=== PATIENT | female | born 1985 | race Caucasian/White ===

== ENCOUNTER 2018-01-20 20:05 | Observation (INO) | payer OTHER ==
[~2018-01-20] VITALS: Ht 162.6 cm; Wt 65.8 kg
[2018-01-20 21:37] LABS: ABSOLUTE BASOPHIL COUNT 0.1 /CUMM (0.0-0.2); ABSOLUTE EOSINOPHIL COUNT 0.1 /CUMM (0.0-0.7); ABSOLUTE GRANULOCYTE CT 5.4 /CUMM (1.4-6.5); ABSOLUTE LYMPH COUNT 1.5 /CUMM (1.2-3.4); ABSOLUTE MONOCYTE COUNT 0.4 /CUMM (0.10-0.60); BASOPHIL % 0.7 % (0.0-2.0); EOSINOPHIL % 1.1 % (0-5); GRANULOCYTE % 72.7 % (42.2-75.2); HEMATOCRIT 38.9 % (37-47); MEAN CORPUSCULAR HGB 31.4 PG (27.0-31.0); MEAN CORPUSCULAR HGB CONC 34.2 G/DL (33.0-37.0); MEAN CORPUSCULAR VOLUME 91.8 FL (81.0-99.0); MEAN PLATELET VOLUME 9.9 FL (7.4-10.4); PLATELET COUNT 211 /CUMM (130-400); RBC DISTRIBUTION WIDTH 12.1 % (11.5-14.5); RED BLOOD CELL CT 4.24 /CUMM (4.20-5.40); WHITE BLOOD CELL COUNT 7.4 /CUMM (4.8-10.8)
--- NOTE | 2018-01-20 22:20 | ED GI/GU/ABDOMINAL COMPLAINT ---
See Addendum History of Present Illness General Chief Complaint: Abdominal Pain/Flank Pain Stated Complaint: "RT SIDE ABD PAIN RADIATES TO JHONY,+N+V-D" Source: patient Exam Limitations: no limitations Vital Signs & Intake/Output Vital Signs & Intake/Output Vital Signs Date Time Temp Pulse Resp B/P B/P Pulse O2 O2 Flow FiO2 Mean Ox Delivery Rate 01/21 0238 98.9 75 20 110/74 98 01/21 0132 97.9 73 18 112/78 98 Room Air 01/20 2335 98.1 78 18 110/75 97 Room Air 01/20 2151 72 18 114/60 100 Room Air 01/20 2149 Room Air 01/20 2042 98.4 83 18 124/81 99 Room Air ED Intake and Output 01/21 0000 01/20 1200 Intake Total Output Total Balance Patient 145 lb Weight Weight Reported by Patient Measurement Method Allergies Coded Allergies: naproxen (From ALEVE) (HIVES 01/20/18) Reconcile Medications No Known Home Medications Triage Note: PT TO ED C/O RT SIDE ABD PAIN THAT WRAPS TO BACK, CONSTANT TODAY WITH +N/V. STARTED AFTER EATING A BURGER FOR LUNCH. DENIES UTI S/S. LAST MENSES 01/13/18. LAST BM WAS THIS AM AND WAS NORMAL Triage Nurses Notes Reviewed? yes LMP (ages 10-50): unknown ? n Is pt currently ? No Onset: Abrupt Duration: day(s): (1), constant, continues in ED, getting worse Timing: single episode today Quality/Severity: cramping Severity Numbers: 9 Location: right upper quadrant Radiation: back Activities at Onset: eating Prior Abdominal Problems: none Past Sexual History: Unobtainable at this time No Modifying Factors: none Modifying Factors: Worsens With: movement, palpation. Associated Symptoms: abdominal pain, nausea/vomiting HPI: 32-year-old female with past medical history of chronic neck pain visits for evaluation of right upper quadrant pain. Patient states symptoms began around lunchtime after she ate a hamburger. The pain is located in the right upper quadrant and radiates into the right flank and back. Described as cramping. It is been constant since lunchtime. Associated with nausea and vomiting. No diarrhea or fever. She reports she has had similar symptoms in the past and she has multiple family members that have had gallbladder problems. No chest pain shortness of breath no urinary symptoms. She has not eaten since the pain started. No other abdominal surgeries. (Stas Velez) Past History Travel History Traveled to [place] past 21 day No Medical History Any Pertinent Medical History? see below for history Neurological: NONE EENT: NONE Cardiovascular: NONE Respiratory: NONE Gastrointestinal: NONE Hepatic: NONE Renal: NONE Musculoskeletal: CHRONIC NECK PAIN Psychiatric: NONE Endocrine: NONE Surgical History Surgical History: none Psychosocial History What is your primary language Croatian Tobacco Use: Never used ETOH Use: occasional use Illicit Drug Use: denies illicit drug use Family History Hx Contributory? No (Stas Velez) Review of Systems Review of Systems Constitutional: Reports: no symptoms. EENTM: Reports: no symptoms. Respiratory: Reports: no symptoms. Cardiovascular: Reports: no symptoms. GI: Reports: see HPI, abdominal pain, nausea, vomiting. Genitourinary: Reports: no symptoms. Musculoskeletal: Reports: no symptoms. Skin: Reports: no symptoms. Neurological/Psychological: Reports: no symptoms. Hematologic/Endocrine: Reports: no symptoms. Immunologic/Allergic: Reports: no symptoms. All Other Systems: Reviewed and Negative (Stas Velez) Physical Exam Physical Exam General Appearance: well developed/nourished, no apparent distress, alert, awake Head: atraumatic, normal appearance Eyes: Bilateral: normal appearance, PERRL, EOMI. Ears, Nose, Throat, Mouth: moist mucous membrane Neck: normal inspection, supple, full range of motion Respiratory: normal breath sounds, chest non-tender, no respiratory distress, lungs clear Cardiovascular: regular rate/rhythm, normal peripheral pulses Peripheral Pulses: 2+ radial (R), 2+ radial (L) Gastrointestinal: normal bowel sounds, soft, no organomegaly, tenderness (ruq) Back: normal inspection, normal range of motion, no vertebral tenderness Extremities: normal range of motion Neurologic/Psych: no motor/sensory deficits, awake, alert, oriented x 3, normal gait Skin: intact, normal color, warm/dry Core Measures ACS in differential dx? No Sepsis Present: No Sepsis Focused Exam Completed? No (Stas Velez) Progress Differential Diagnosis: appendicitis, biliary colic, bowel obstruction, cholecystitis, diverticulitis, ectopic , gastritis, hepatitis, hernia, inflamm bowel dis, intrauterine , kidney stone, ovarian cyst, ovarian torsion, pancreatitis, PID/cervicitis, peptic ulcer, PUD/GERD, SBO, threatened AB, UTI/pyelo Plan of Care: Orders Procedure Date/time Status Nothing by Mouth 01/21 B Active Vital Signs 01/21 149 Active Teach/Educate 01/21 149 Active Pain Treatment and Response 01/21 149 Active Nutritional Intake, Monitor 01/21 149 Active Isolation 01/21 149 Active Intake & Output 01/21 149 Active Patient Care Conference 01/21 149 Active Activity/Ambulation 01/21 149 Active Pathway - chart 01/22 108 Active Patient Data 01/22 104 Active Code Status 01/22 104 Active Add-on Test (ER Only) 01/21 37 Active TYPE & SCREEN (NOT X-MATCH) 01/[address] in observation 01/21 UNK Active VTE Mechanical Prophylaxis 01/21 UNK Active Vital Signs 01/21 UNK Active Intake & Output 01/21 UNK Active Activity/Ambulation 01/21 UNK Active PARTIAL THROMBOPLASTIN TIME 01/20 2129 Complete PROTHROMBIN TIME 01/20 2129 Complete TROPONIN LEVEL 01/20 2058 Complete LIPASE 01/20 2058 Complete COMPREHENSIVE METABOLIC PANEL 01/20 2058 Complete CBC WITHOUT DIFFERENTIAL 01/20 2058 Complete URINE 01/21 2056 Complete URINALYSIS 01/21 2056 Complete Current Medications Sig/Buck Start time Last Medication Dose Stop Time Status Admin Morphine Sulfate 2 MG Q2 HRS NEEDED PRN 01/21 145 AC (MORPHINE SULFATE) Morphine Sulfate 4 MG Q2 HRS NEEDED PRN 01/21 145 AC 01/21 (MORPHINE SULFATE) 0333 Acetaminophen 650 MG Q6PRN PRN 01/21 115 AC (Tylenol) Ampicillin Sodium/ 1,500 MG Q6 01/21 115 AC 01/21 Sulbactam Sodium 0143 (Unasyn) Sodium Chloride 100 ML (Normal Saline 0.9%) Dextrose/Sodium 1,000 ML .Q8H 01/21 115 AC 01/21 Chloride 0240 (D5-Normal Saline) Ondansetron HCl 4 MG Q6-PRN PRN 01/21 115 AC 01/21 (Zofran) 0302 Laboratory Tests 01/20/182128: Anion Gap 12, Estimated GFR > 60, BUN/Creatinine Ratio 20.0, Glucose 89, Calcium 9.8, Total Bilirubin 0.6, AST 35, ALT 44, Alkaline Phosphatase 52, Troponin I < 0.01, Total Protein 7.1, Albumin 4.2, Globulin 2.9, Albumin/Globulin Ratio 1.4, Lipase 127, PT 12.2, INR 1.12, APTT 33, CBC w Diff NO MAN DIFF REQ, RBC 4.24, MCV 91.8, MCH 31.4 H, MCHC 34.2, RDW 12.1, MPV 9.9, Gran % 72.7, Lymphocytes % 19.9 L, Monocytes % 5.6, Eosinophils % 1.1, Basophils % 0.7, Absolute Granulocytes 5.4, Absolute Lymphocytes 1.5, Absolute Monocytes 0.4, Absolute Eosinophils 0.1, Absolute Basophils 0.1 01/20/182057: Urine Color YEL, Urine Clarity CLEAR, Urine pH 6.5, Ur Specific [place] 1.020, Urine Protein NEG, Urine Ketones TRACE H, Urine Nitrite NEG, Urine Bilirubin NEG, Urine Urobilinogen 0.2, Ur Leukocyte Esterase NEG, Ur Microscopic EXAM NOT REQUIRED, Urine Hemoglobin NEG, Urine Glucose NEG, Urine Test NEGATIVE Patient seen and evaluated. She is here with right upper quadrant abdominal pain that started today after eating a hamburger. It is associated with nausea and vomiting. No diarrhea she is afebrile and vital signs are stable. Labs CT scan ordered IV Tylenol and IV Zofran ordered. Patient still reported significant pain despite IV Tylenol. IV morphine ordered. All blood work is within normal limits. Urine is clean. CT scan shows evidence of acute cholecystitis. Spoke with surgery the surgical PA will come to evaluate the patient. Patient is being admitted by surgery for further evaluation and treatment of cholecystitis. Diagnostic Imaging: Viewed by Me: CT Scan. Discussed w/RAD: CT Scan. Radiology Impression: PATIENT: TATUM INIGUEZ PRESENT AGE: 32 PATIENT ACCOUNT NO: [id number] : 87 LOCATION: [facility] ORDERING PHYSICIAN: Stas ANTONIO SERVICE DATE: 01/20/18 EXAM TYPE: CAT - CT ABD & PELVIS W IV CONTRAST EXAMINATION: CT ABDOMEN AND PELVIS WITH CONTRAST CLINICAL INFORMATION: Right upper quadrant pain COMPARISON: None TECHNIQUE: Multidetector volumetric imaging was performed of the abdomen and pelvis following IV administration of 95 mL of Optiray 320 intravenous contrast. Sagittal and coronal reformatted images were obtained on the technologist's workstation. DLP: 310.69 mGy-cm FINDINGS: LUNG BASES: The visualized lung bases are unremarkable. LIVER, GALLBLADDER, AND BILIARY TREE: The liver is normal in size, shape, and attenuation. No focal hepatic lesion or biliary ductal dilatation is present. The gallbladder is physiologically distended and has an abnormal appearance with wall thickening and/or pericholecystic fluid. No calcified gallstones are seen. PANCREAS: There is a 1.2 cm cyst located between the anterior cortex of the left kidney and the distal pancreas, though this appears to be more closely associated with the pancreas. No peripancreatic inflammation is seen. SPLEEN: Unremarkable. ADRENAL GLANDS: Unremarkable. KIDNEYS AND URETERS: The kidneys are normal in size, shape, and attenuation. As noted above, there is a 1.2 cm cyst between the anterior cortex of the mid left kidney and the pancreas. No hydronephrosis, hydroureter, or calculi seen. No perinephric stranding. BLADDER: Unremarkable. GASTROINTESTINAL TRACT: The small and large bowel are unremarkable. The appendix is unremarkable. ABDOMINAL WALL: No significant hernia is appreciated. LYMPH NODES: Normal. VASCULAR: Unremarkable. PELVIC VISCERA: Unremarkable. OSSEOUS STRUCTURES: Unremarkable. IMPRESSION: 1. Abnormal appearance of the gallbladder with wall thickening and/or pericholecystic fluid. Appearance is concerning for acute cholecystitis in the proper clinical setting. No densely calcified gallstones are seen, though this would be better evaluated with ultrasound. 2. Cyst measuring 1.2 cm located between the anterior cortex of the left kidney and the pancreas, which appears to be more closely associated with the pancreas. Further assessment with nonemergent MRI/MRCP is recommended. DICTATED BY: Gianni Tidwell MD DATE/TIME DICTATED:01/21/1820 MANAGER ADVERTISING:[employer] DATE/TIME TRANSCRIBED:20 CONFIDENTIAL, DO NOT COPY WITHOUT APPROPRIATE AUTHORIZATION. < Electronically signed in Other Vendor System> SIGNED BY: Gianni Tidwell MD 01/21/1833 Initial ED EKG: none (Stas Velez) Departure Departure Disposition: STILL A PATIENT Condition: Stable Clinical Impression Primary Impression: Acute cholecystitis Referrals: Salma SHELBY,Brenda Torres (PCP/Family) Departure Forms: Customer Survey General Discharge Information Prescriptions: Current Visit Scripts No Known Home Medications Admission Note Spoke With: Deion SHELBY,Nile Gr Documentation of Exam: Documentation of any treatments & extenuating circumstances including Concerns Regarding Discharge (functional status, medication knowledge or non-compliance, living conditions, etc.) that warrant an admission rather than observation: [IV fluids, IV pain meds, serial labs, laparoscopic cholecystectomy] (Jorge ANTONIO,Stas) PA/COMPUTER SYSTEMS ANALYST Co-Sign Statement Statement: ED Attending supervision documentation- [] I saw and evaluated the patient. I have also reviewed all the pertinent lab results and diagnostic results. I agree with the findings and the plan of care as documented in the PA's/COMPUTER SYSTEMS ANALYST's documentation. [X] I have reviewed the ED Record and agree with the PA's/COMPUTER SYSTEMS ANALYST's documentation. [] Additions or exceptions (if any) to the PAs/COMPUTER SYSTEMS ANALYST's note and plan are summarized below: [] (Aaron Briseno DO
--- NOTE | 2018-01-21 00:34 | CT SCAN REPORT ---
EXAMINATION: CT ABDOMEN AND PELVIS WITH CONTRAST CLINICAL INFORMATION: Right upper quadrant pain COMPARISON: None TECHNIQUE: Multidetector volumetric imaging was performed of the abdomen and pelvis following IV administration of 95 mL of Optiray 320 intravenous contrast. Sagittal and coronal reformatted images were obtained on the technologist's workstation. DLP: 310.69 mGy-cm FINDINGS: LUNG BASES: The visualized lung bases are unremarkable. LIVER, GALLBLADDER, AND BILIARY TREE: The liver is normal in size, shape, and attenuation. No focal hepatic lesion or biliary ductal dilatation is present. The gallbladder is physiologically distended and has an abnormal appearance with wall thickening and/or pericholecystic fluid. No calcified gallstones are seen. PANCREAS: There is a 1.2 cm cyst located between the anterior cortex of the left kidney and the distal pancreas, though this appears to be more closely associated with the pancreas. No peripancreatic inflammation is seen. SPLEEN: Unremarkable. ADRENAL GLANDS: Unremarkable. KIDNEYS AND URETERS: The kidneys are normal in size, shape, and attenuation. As noted above, there is a 1.2 cm cyst between the anterior cortex of the mid left kidney and the pancreas. No hydronephrosis, hydroureter, or calculi seen. No perinephric stranding. BLADDER: Unremarkable. GASTROINTESTINAL TRACT: The small and large bowel are unremarkable. The appendix is unremarkable. ABDOMINAL WALL: No significant hernia is appreciated. LYMPH NODES: Normal. VASCULAR: Unremarkable. PELVIC VISCERA: Unremarkable. OSSEOUS STRUCTURES: Unremarkable. IMPRESSION: 1. Abnormal appearance of the gallbladder with wall thickening and/or pericholecystic fluid. Appearance is concerning for acute cholecystitis in the proper clinical setting. No densely calcified gallstones are seen, though this would be better evaluated with ultrasound. 2. Cyst measuring 1.2 cm located between the anterior cortex of the left kidney and the pancreas, which appears to be more closely associated with the pancreas. Further assessment with nonemergent MRI/MRCP is recommended.
[2018-01-21 01:00] LABS: PT 12.2 SEC (9.4-12.5); PTT 33 SEC (25-37)
--- NOTE | 2018-01-21 01:00 | History & Physical Pre-Op ---
Ingrid Arango 01/21/18 0055: General Information and HPI History of Present Illness: 32yoF presents to ED this evening complaining of acute onset RUQ pain that occured shortly after eating a burger for lunch. Pain radiates around to right flank, +n/v. Last Bm this am, normal per pt. She has had episodes of similar pain over past few months, though less severe. no cp/sob/fevers. no other complaints. PMHx: cervical neck pain sp nerve ablation x3 PSHx: c/s x2 (5 & 9 yr ago) home meds: none Allergies/Medications Allergies: Coded Allergies: naproxen (From ALEVE) (HIVES 01/20/18) Home Med list No Known Home Medications Past History Medical History Neurological: NONE EENT: NONE Cardiovascular: NONE Respiratory: NONE Gastrointestinal: NONE Hepatic: NONE Renal: NONE Musculoskeletal: NONE (s/p ), CHRONIC NECK PAIN s/p nerve ablation x3 Psychiatric: NONE Endocrine: NONE Surgical History Pertinent Surgical History: none (x2), Past Family/Social History Psychosocial History Who Do You Live With? spouse, child Smoking Status: Never Smoked ETOH Use: occasional use Illicit Drug Use: denies illicit drug use Employment History Profession/Employer: RN Exam & Diagnostic Data Last 24 Hrs of Vital Signs/I&O Vital Signs Date Time Temp Pulse Resp B/P B/P Pulse O2 O2 Flow FiO2 Mean Ox Delivery Rate 01/20 2335 98.1 78 18 110/75 97 Room Air 01/20 2151 72 18 114/60 100 Room Air 01/20 2149 Room Air 01/20 2042 98.4 83 18 124/81 99 Room Air Intake & Output 01/21 0800 01/21 0000 01/20 1600 Intake Total Output Total Balance Patient 145 lb Weight Weight Reported by Patient Measurement Method Physical Exam: gen- nad card- s1s2 rrr pulm- ctab abd- ttp ruq, +murphys, no r/g, soft ext- calves soft nt bl Last 24 Hrs of Labs/Don: Laboratory Tests 01/20/182128: Anion Gap 12, Estimated GFR > 60, BUN/Creatinine Ratio 20.0, Glucose 89, Calcium 9.8, Total Bilirubin 0.6, AST 35, ALT 44, Alkaline Phosphatase 52, Troponin I < 0.01, Total Protein 7.1, Albumin 4.2, Globulin 2.9, Albumin/Globulin Ratio 1.4, Lipase 127, PT Pending, INR Pending, APTT Pending, CBC w Diff NO MAN DIFF REQ, RBC 4.24, MCV 91.8, MCH 31.4 H, MCHC 34.2, RDW 12.1, MPV 9.9, Gran % 72.7, Lymphocytes % 19.9 L, Monocytes % 5.6, Eosinophils % 1.1, Basophils % 0.7, Absolute Granulocytes 5.4, Absolute Lymphocytes 1.5, Absolute Monocytes 0.4, Absolute Eosinophils 0.1, Absolute Basophils 0.1 01/20/182057: Urine Color YEL, Urine Clarity CLEAR, Urine pH 6.5, Ur Specific [place] 1.020, Urine Protein NEG, Urine Ketones TRACE H, Urine Nitrite NEG, Urine Bilirubin NEG, Urine Urobilinogen 0.2, Ur Leukocyte Esterase NEG, Ur Microscopic EXAM NOT REQUIRED, Urine Hemoglobin NEG, Urine Glucose NEG, Urine Test NEGATIVE Diagnostic Data Other Results SERVICE DATE: 01/20/18 EXAM TYPE: CAT - CT ABD & PELVIS W IV CONTRAST EXAMINATION: CT ABDOMEN AND PELVIS WITH CONTRAST CLINICAL INFORMATION: Right upper quadrant pain COMPARISON: None TECHNIQUE: Multidetector volumetric imaging was performed of the abdomen and pelvis following IV administration of 95 mL of Optiray 320 intravenous contrast. Sagittal and coronal reformatted images were obtained on the technologist's workstation. DLP: 310.69 mGy-cm FINDINGS: LUNG BASES: The visualized lung bases are unremarkable. LIVER, GALLBLADDER, AND BILIARY TREE: The liver is normal in size, shape, and attenuation. No focal hepatic lesion or biliary ductal dilatation is present. The gallbladder is physiologically distended and has an abnormal appearance with wall thickening and/or pericholecystic fluid. No calcified gallstones are seen. PANCREAS: There is a 1.2 cm cyst located between the anterior cortex of the left kidney and the distal pancreas, though this appears to be more closely associated with the pancreas. No peripancreatic inflammation is seen. SPLEEN: Unremarkable. ADRENAL GLANDS: Unremarkable. KIDNEYS AND URETERS: The kidneys are normal in size, shape, and attenuation. As noted above, there is a 1.2 cm cyst between the anterior cortex of the mid left kidney and the pancreas. No hydronephrosis, hydroureter, or calculi seen. No perinephric stranding. BLADDER: Unremarkable. GASTROINTESTINAL TRACT: The small and large bowel are unremarkable. The appendix is unremarkable. ABDOMINAL WALL: No significant hernia is appreciated. LYMPH NODES: Normal. VASCULAR: Unremarkable. PELVIC VISCERA: Unremarkable. OSSEOUS STRUCTURES: Unremarkable. IMPRESSION: 1. Abnormal appearance of the gallbladder with wall thickening and/or pericholecystic fluid. Appearance is concerning for acute cholecystitis in the proper clinical setting. No densely calcified gallstones are seen, though this would be better evaluated with ultrasound. 2. Cyst measuring 1.2 cm located between the anterior cortex of the left kidney and the pancreas, which appears to be more closely associated with the pancreas. Further assessment with nonemergent MRI/MRCP is recommended. Assessment/Plan Assessment/Plan: A- 32yoF with acute cholecystitis, with normal LFTs and no leukocytosis. P- 23hr obs npo ivf iv meds dvt ppx or tomorrow will dw dr whiting As Ranked By This Provider Problem List: 1. Acute cholecystitis Deion SHELBY,Nile Gr 01/21/18 1032: Assessment/Plan Copies To: Salma SHELBY,Brenda Torres Attending MD Review Statement Attending Statement Attending MD Statement: examined this patient, discuss w/resident/PA/WORKPLACE RELATIONS ADVISER, reviewed images Attending Assessment/Plan: Agree with PA history, his examination and assessment. 32-year-old relatively healthy young woman presents with classic biliary colic symptoms and now acute findings consistent with acute cholecystitis. Patient describes years duration of intermittent epigastric right upper quadrant abdominal pain with radiation to the back. She was seen by primary care physician a few months ago with complaints of pain and was noted to have elevated liver enzymes. She now presents with acute right upper quadrant pain, Gautam sign and CT scan consistent with acute cholecystitis. Her current liver enzymes are normal. Assessment is that of prior choledocholithiasis and now acute cholecystitis. Recommendations are for prompt laparoscopic Cholecystectomy. She is informed the risk of the operation including bleeding, infection, conversion to open and the presence of postcholecystectomy diarrhea. She agrees to proceed.
--- NOTE | 2018-01-21 01:09 | Admission Core Measures ---
Acute Coronary Syndrome (CM) ACS Core Measures Acute Coronary Syndrome Diagnosis No Congestive Heart Failure (NEW) CHF Core Measures Congestive Heart Failure Diagnosis No Cerebrovascular Accident CVA Core Measures CVA/TIA Diagnosis No Venous Thromboembolism VTE Core Ada (View Protocol) VTE Risk Factors Acute Medical Illness No Mechanical VTE Prophylaxis d/t N/A MechProphylax Ordered No VTE Pharm Prophylaxis d/t LowRisk-No Interven Req'd Problem List As ranked by this Provider includes Assessment & Plan 1. Acute cholecystitis HOME MEDS Home Med List No Known Home Medications
[2018-01-21 02:38] VITALS: BP 110/74
--- NOTE | 2018-01-21 10:35 | Operative Report ---
Operative/Inv Procedure Report Surgery Date: 01/21/18 Name of Procedure: Laparoscopic cholecystectomy Pre-Operative Diagnosis: Acute cholecystitis Post-Operative Diagnosis: Same Estimated Blood Loss: scant Surgeon/Seam Rubber: Deion SHELBY,Nile Gr/Kota ANTONIO Anesthesia: general endotracheal tube Drains: None Specimens: Gallbladder Operative Indication: 32-year-old woman presents with acute cholecystitis for emergent resection Operative/Procedure Note Note: After informed consent patient is brought to the operating room and laid supine. General anesthesia was obtained and her abdomen was prepped and draped. The skin above the umbilicus infiltrated with local anesthesia and a curvilinear incision made sharply. There was pre-existing umbilical piercing. We excised the fistula tract sharply. We came down through the subcutaneous tissues bluntly and grasped the fascia with Lilli's. A fasciotomy was created sharply and stay sutures placed. The peritoneum was entered sharply and a blunt Hercules port was placed. Pneumoperitoneum was achieved. 3, 5 mm ports were placed in the epigastrium and right upper quadrant after local anesthesia was instilled and under direct vision the camera. She's placed in reverse Trendelenburg and rotated towards the left. The gallbladder is identified. It was grasped at the dome and retracted towards the head. There is diffuse watery inflammatory changes of the gallbladder. The liver and right upper quadrant were otherwise normal. Infundibulum was then grasped. Adhesions to the undersurface were taken down with blunt and cautery dissection. We dissected both sides the triangle Calot peritoneal tissue with cautery. The artery was medial and its normal anatomic position. It was cauterized medially to allow it to be mobilized away from the duct. [place] was cleared of areolar tissue with cautery. The arteries and duct were doubly ligated with clips. Gallbladder is removed from the fossa electrocautery. It was placed in Endo Catch bag and cinched up. Right upper quadrant was and suction irrigated normal saline. Hemostasis achieved with cautery. The ports were then removed and the gallbladder delivered and passed off the field. The fascia was closed with 0 Vicryl suture. Skin incisions closed with 4-0 Vicryl. Steri-Strips and sterile dressing applied. Sponge and needle counts are correct. CC: Salma SHELBY,Brenda Torres
--- NOTE | 2018-01-21 10:46 | Patient Discharge Instructions ---
Discharge Instructions General Discharge Information You were seen/treated for: Acute cholecystitis You had these procedures: Laparoscopic Cholecystectomy Watch for these problems: Bleeding, wound infection, redness, discharge, fever, chills, nausea, vomiting Do not soak the wound: Yes No bath, but you may shower: Yes Other wound care: Leave steri-strip bandaids in place until they fall off in 1-2 weeks. May shower and get operative area wet, do not soak or scrub Diet Continue normal diet: Yes Activity Full Activity/No Limits: Yes Acute Coronary Syndrome Inclusion Criteria At DC or during hospital stay patient has or had the following: ACS DIAGNOSIS No Discharge Core Measures Meds if any: Prescribed or Continued at Discharge Meds if any: NOT Prescribed or Continued at Discharge Congestive Heart Failure Inclusion Criteria At DC or during hospital stay patient has or had the following: CHF DIAGNOSIS No Discharge Core Measures Meds if any: Prescribed or Continued at Discharge Meds if any: NOT Prescribed or Continued at Discharge Cerebrovascular accident Inclusion Criteria At DC or during hospital stay patient has or had the following: CVA/TIA Diagnosis No Discharge Core Measures Meds if any: Prescribed or Continued at Discharge Meds if any: NOT Prescribed or Continued at Discharge Venous thromboembolism Inclusion Criteria VTE Diagnosis No Discharge Core Measures - Per Current guidelines, there needs to be overlap - treatment for the first 5 days of Warfarin therapy. - If discharged on Warfarin prior to 5 days of - overlap therapy, the patient will need to be - assessed for post discharge needs including - *Post discharge parental anticoagulation - *Warfarin and/or parental anticoagulation education - *Follow up date to check INR post discharge Meds if any: Prescribed or Continued at Discharge Note: Overlap Therapy is Warfarin and Anticoagulant Meds if any: NOT Prescribed or Continued at Discharge
[2018-01-21] MEDS ORDERED: PERCOCET 5-3251 EACH PO (10:49)
[2018-01-21 12:30] VITALS: BP 120/60
[2018-01-21 13:57] VITALS: BP 116/82
[2018-01-21 18:00] VITALS: BP 122/66
--- NOTE | 2018-01-21 18:38 | PN- General Surgery ---
Subjective Subjective: Patient seen and evaluated for post op check s/p Laparoscopic cholecystectomy. Reports moderate amount of pain with any major movements, but overall is getting better over past few hours. Tried to eat, but became nausous. Recieved Zofran with some relief. Also, patient now complaining of dysuria, though has voided > 1L since OR. She is requesting to obtain urinanalysis and to stay overnight due to her pain and unable to tolerate PO intake. Otherwise, doing as expected. Denies CP, SOB, palpitations, GONZALEZ, dizziness. Patient has no further questions at this time. Objective Vital Signs and I&Os Vital Signs Date Time Temp Pulse Resp B/P B/P Pulse O2 O2 Flow FiO2 Mean Ox Delivery Rate 01/21 1357 97.6 87 20 116/82 99 Room Air 01/21 0238 98.9 75 20 110/74 98 01/21 0132 97.9 73 18 112/78 98 Room Air 01/20 2335 98.1 78 18 110/75 97 Room Air 01/20 2151 72 18 114/60 100 Room Air 01/20 2149 Room Air 01/20 2042 98.4 83 18 124/81 99 Room Air Intake & Output 01/21 1600 01/21 0800 01/21 0000 01/20 1600 01/20 0800 01/20 0000 Intake Total 540 1787.5 Output Total 300 200 Balance 240 1587.5 Intake, IV 300 1787.5 Intake, Oral 240 Number 0 Bowel Movements Output, Urine 300 200 Patient 145 lb 145 lb Weight Weight Reported by Patient Measurement Method Physical Exam: General: young female laying in bed with head elivated, answer questions, nad CV: RRR, s1s2 Pulm: CTA BL Abdomen: 4 laparoscopic surgical wounds covered with steris and bandaids, mild ss saturation, bs+, mild distention, no guarding or rigidity. extremitiys: warm and well perfused Current Medications: Current Medications Sig/Buck Start time Last Medication Dose Route Stop Time Status Admin Acetaminophen 1,000 MG .STK-MED ONE 01/21 0849 DC IV 01/21 0850 Acetaminophen 650 MG Q6PRN PRN 01/21 0115 AC PO Acetaminophen 0 .STK-MED ONE 01/20 2147 DC IV Acetaminophen 1,000 MG ONCE ONE 01/20 2145 DC 01/20 N/A 1 UNIT IV 06/09 2159 2152 Ampicillin Sodium/ 0 .STK-MED ONE 01/21 0141 DC Sulbactam Sodium .ROUTE Ampicillin Sodium/ 1,500 MG Q6 01/21 0115 AC 01/21 Sulbactam Sodium IV 1819 Sodium Chloride 100 ML Dextrose/Sodium 1,000 ML .Q8H 01/21 0115 DC 01/21 Chloride IV 0240 Fentanyl Citrate 250 MCG .STK-MED ONE 01/21 0849 DC IM 01/21 0850 Hydromorphone HCl 2 MG .STK-MED ONE 01/21 0848 DC IM 01/21 0849 Ketorolac 30 MG 4 TIMES/DAY 01/21 1825 UNVr Tromethamine IV Midazolam HCl 2 MG .STK-MED ONE 01/21 0849 DC IM 01/21 0850 Morphine Sulfate 2 MG Q3P PRN 01/21 1815 AC 01/21 IV 1819 Morphine Sulfate 2 MG Q3P PRN 01/21 1800 DC IV Morphine Sulfate 2 MG Q2 HRS NEEDED PRN 01/21 0145 DC IV Morphine Sulfate 4 MG Q2 HRS NEEDED PRN 01/21 0145 DC 01/21 IV 0803 Morphine Sulfate 0 .STK-MED ONE 01/21 0145 DC .ROUTE Morphine Sulfate 2 MG Q3P PRN 01/21 0115 DC IV Morphine Sulfate 4 MG Q3P PRN 01/21 0115 DC IV Morphine Sulfate 0 .STK-MED ONE 01/20 2305 DC .ROUTE Morphine Sulfate 4 MG ONCE ONE 01/20 2300 DC 01/20 IV 01/20 2301 2300 Morphine Sulfate 0 .STK-MED ONE 01/20 2229 DC .ROUTE Morphine Sulfate 2 MG ONCE ONE 01/20 2215 DC 01/20 IV 01/20 2216 2224 Ondansetron HCl 4 MG Q6-PRN PRN 01/21 0115 AC 01/21 IV 1319 Ondansetron HCl 0 .STK-MED ONE 01/20 214 DC .ROUTE Ondansetron HCl 4 MG ONCE ONE 01/20 2145 DC 01/20 IV 01/20 2146 2152 Oxycodone/ 1 TAB Q4P PRN 01/21 1045 AC 01/21 Acetaminophen PO 1356 Sodium Chloride 1,000 ML BOLUS ONE 01/21 0045 DC 01/21 IV 01/21 0144 0045 Results Last 48 Hours of Labs: Laboratory Tests 01/20 Chemistry Sodium (137 - 145 mmol/L) 143 Potassium (3.5 - 5.1 mmol/L) 3.9 Chloride (98 - 107 mmol/L) 103 Carbon Dioxide (22 - 30 mmol/L) 28 Anion Gap (5 - 16) 12 BUN (7 - 17 mg/dL) 14 Creatinine (0.5 - 1.0 mg/dL) 0.7 Estimated GFR (>60 ml/min) > 60 BUN/Creatinine Ratio (7 - 25 %) 20.0 Glucose (65 - 99 mg/dL) 89 Calcium (8.4 - 10.2 mg/dL) 9.8 Total Bilirubin (0.2 - 1.3 mg/dL) 0.6 AST (14 - 36 U/L) 35 ALT (9 - 52 U/L) 44 Alkaline Phosphatase (<127 U/L) 52 Troponin I (< 0.11 ng/ml) < 0.01 Total Protein (6.3 - 8.2 g/dL) 7.1 Albumin (3.5 - 5.0 g/dL) 4.2 Globulin (1.9 - 4.2 gm/dL) 2.9 Albumin/Globulin Ratio (1.1 - 2.2 %) 1.4 Lipase (23 - 300 U/L) 127 Coagulation PT (9.4 - 12.5 SEC) 12.2 INR (0.90 - 1.19) 1.12 APTT (25 - 37 SEC) 33 Hematology CBC w Diff NO MAN DIFF REQ WBC (4.8 - 10.8 /CUMM) 7.4 RBC (4.20 - 5.40 /CUMM) 4.24 Hgb (12.0 - 16.0 G/DL) 13.3 Hct (37 - 47 %) 38.9 MCV (81.0 - 99.0 FL) 91.8 MCH (27.0 - 31.0 PG) 31.4 H MCHC (33.0 - 37.0 G/DL) 34.2 RDW (11.5 - 14.5 %) 12.1 Plt Count (130 - 400 /CUMM) 211 MPV (7.4 - 10.4 FL) 9.9 Gran % (42.2 - 75.2 %) 72.7 Lymphocytes % (20.5 - 51.1 %) 19.9 L Monocytes % (1.7 - 9.3 %) 5.6 Eosinophils % (0 - 5 %) 1.1 Basophils % (0.0 - 2.0 %) 0.7 Absolute Granulocytes (1.4 - 6.5 /CUMM) 5.4 Absolute Lymphocytes (1.2 - 3.4 /CUMM) 1.5 Absolute Monocytes (0.10 - 0.60 /CUMM) 0.4 Absolute Eosinophils (0.0 - 0.7 /CUMM) 0.1 Absolute Basophils (0.0 - 0.2 /CUMM) 0.1 Urines Urine Color (YEL,AMB,STR) YEL Urine Clarity (CLEAR) CLEAR Urine pH (5.0 - 8.0) 6.5 Ur Specific Josephine (1.001 - 1.035) 1.020 Urine Protein (NEG,<30 MG/DL) NEG Urine Ketones (NEG) TRACE H Urine Nitrite (NEG) NEG Urine Bilirubin (NEG) NEG Urine Urobilinogen (0.1 - 1.0 EU/dl) 0.2 Ur Leukocyte Esterase (NEG) NEG Ur Microscopic EXAM NOT REQUIRED Urine Hemoglobin (NEG) NEG Urine Glucose (N MG/DL) NEG Urine Test NEGATIVE Assessment/Plan Assessment/Plan 32 y/o F now POD#0 s/p laparoscopic cholecystectomy. Remains HD stable with some pain and post op nausea Plan discussed with Dr. Albarran - Will keep patient overnight for observation/extended recovery for continued pain control and given she is not tolerating PO diet - contineu percocets/ morphine for breakthough - will add Toradol (patient has hx of allergy to Aleve). Per nursing, pt recieved toradol from anesthesia without problems. Discussed with pharmacy and will go ahead and give it. Observe for reaction. - regular diet - anti emetics PRN - f/u UA Core Measures Venous Thromboembolism VTE Risk Factors Acute Medical Illness No Mechanical VTE Prophylaxis d/t N/A MechProphylax Ordered No VTE Pharm Prophylaxis d/t LowRisk-No Interven Req'd
[2018-01-21 20:17] VITALS: BP 118/70
[2018-01-22 00:04] VITALS: BP 104/70
[2018-01-22 04:06] VITALS: BP 96/56
--- NOTE | 2018-01-22 07:07 | PN- General Surgery ---
See Addendum Subjective Subjective: POD#1 S/P LAP ABELARDO NO MAJOR ISSUES OVERNIGHT DENEIS CP, SOB, NO N+V WITH DIET Objective Vital Signs and I&Os Vital Signs Date Time Temp Pulse Resp B/P B/P Pulse O2 O2 Flow FiO2 Mean Ox Delivery Rate / 0406 98.4 73 20 96/56 97 Room Air / 0004 98.1 75 20 104/70 97 Room Air 01/21 2017 97.8 90 20 118/70 98 Room Air 01/21 1800 97.9 86 20 122/66 100 Room Air 01/21 1357 97.6 87 20 116/82 99 Room Air 01/21 1230 97.6 82 20 120/60 98 Room Air Intake & Output 01/22 0800 01/22 0000 01/21 1600 01/21 0800 01/21 0000 01/20 1600 Intake Total 480 437 256 8145.5 Output Total 800 300 300 200 Balance -320 413 828 3805.5 Intake, IV 300 1787.5 Intake, Oral 480 480 240 Number 0 Bowel Movements Output, Urine 800 300 300 200 Patient 145 lb 145 lb Weight Weight Reported by Patient Measurement Method Physical Exam: CV: RRR LUNGS: CLEAR ABD: SOFT, +BS EXPECTED TENDERNESS TO PALP DRSGS DRY EXT: WARM, DISTAL CMS INTACT Assessment/Plan Assessment/Plan SURGICAL STABLE PLAN OOB/AMBUALTE D/C IV PAIN MEDS ADVANCE DIET HOME D/C LATER TODAY F/U DR SAWYER NEXT WEEK Core Measures Venous Thromboembolism VTE Risk Factors Acute Medical Illness No Mechanical VTE Prophylaxis d/t N/A MechProphylax Ordered No VTE Pharm Prophylaxis d/t LowRisk-No Interven Req'd
[2018-01-22 07:58] LABS: ABSOLUTE BASOPHIL COUNT 0 /CUMM (0.0-0.2); ABSOLUTE EOSINOPHIL COUNT 0 /CUMM (0.0-0.7); ABSOLUTE GRANULOCYTE CT 8.7 /CUMM (1.4-6.5); ABSOLUTE LYMPH COUNT 1.3 /CUMM (1.2-3.4); ABSOLUTE MONOCYTE COUNT 0.6 /CUMM (0.10-0.60); BASOPHIL % 0.3 % (0.0-2.0); EOSINOPHIL % 0.4 % (0-5); GRANULOCYTE % 81.6 % (42.2-75.2); HEMATOCRIT 35.8 % (37-47); MEAN CORPUSCULAR HGB 32.2 PG (27.0-31.0); MEAN CORPUSCULAR HGB CONC 34.7 G/DL (33.0-37.0); MEAN CORPUSCULAR VOLUME 92.9 FL (81.0-99.0); MEAN PLATELET VOLUME 10.7 FL (7.4-10.4); PLATELET COUNT 215 /CUMM (130-400); RBC DISTRIBUTION WIDTH 12.2 % (11.5-14.5); RED BLOOD CELL CT 3.86 /CUMM (4.20-5.40); WHITE BLOOD CELL COUNT 10.7 /CUMM (4.8-10.8)
[2018-01-22 12:44] VITALS: BP 100/70
[2018-01-22] MEDS ORDERED: SIMETHICONE80 M1 PO (15:52)
--- NOTE | 2018-01-23 09:02 | Surg Short-stay <48hrs Dis Sum ---
Visit Information Visit Dates Admission Date: 01/21/18 Discharge Date: 01/22/18 Surgical Short Stay DC Summary Admission Diagnosis: acute cholecystitis Final Diagnosis: same Procedure(s): laparoscopic cholecystectomy Summary/Significant Findings: none Condition at Discharge: good Discharge Disposition: home or self care Discharge instructions provided to patient/family: Yes Post discharge follow-up plan: two weeks Copies to: Brenda Marsh MD
== END 2018-01-22 17:20 ==
LOC: ERH 20:05 → 2NB 01-21 01:04 → ERHI 01-21 01:21 → ERH 01-21 01:21 → ENRESERV 01-21 01:47 → ERHI 01-21 02:25 → 2NB 01-21 02:25 → ENTRNSPT 01-21 11:37 → CMPTRNSPT 01-21 12:48 → 2NB 01-21 14:18 → ENPENDDIS 01-22 08:26 → 2NB 01-22 17:20
PROVIDERS: Physician Assistant Medical; Physician Assistant Surgical
DX: K81.0 Acute cholecystitis (principal); K81.1 Chronic cholecystitis
CPT/HCPCS: 36415; 74177; 81003; 81025; 82436; 88304; 96360; 96365; 96375; 96376; G0378; J0131; J0690; J1885; J2405; J3490